=== PATIENT | female | born 1980 | race Hispanic/Latino ===

== ENCOUNTER 2018-10-05 14:41 | Observation (INO) | payer MEDICAID, SELFPAY ==
[~2018-10-05 14:41] MED LIST: Gadobenate Dimeglumine 529 MG/1 ML (20ML VIAL) ONE
[2018-10-05 15:21] LABS: #Eosinphils 0.2 thou/uL (0.0-0.7); #Lymphocytes 2.5 thou/uL (1.20-3.40); #Monocytes 0.4 thou/uL (0.11-0.59); #Neutrophils 6.8 thou/uL (1.40-6.50); %Basophils 0.5 % (0.0-1.0); %Lymphocytes 25.2 % (21.0-51.0); %Monocytes 4.2 % (0.0-10.0); %Neutrophils 68.1 % (42.0-75.0); Hemoglobin 13.9 g/dL (12.0-16.0); Mean Corpuscular HGB CONC 33.7 g/dL (32.0-36.0); Mean Corpuscular Hemoglobin 32.1 pg (27.0-31.0); Mean Corpuscular Volume 95.5 fL (78.0-98.0); Mean Platelet Volume 7.5 fL (7.4-10.4); Platelet Count 324 thou/uL (130-400); RBC Distribution Width 11.3 % (11.5-14.5); Red Blood Cell (RBC) Count 4.34 mill/uL (4.20-5.40); White Blood Cell (WBC) Count 9.9 thou/uL (4.8-10.8)
[2018-10-05 15:37] LABS: ALT (SGPT) 10 U/L (8-55); AST (SGOT) 8 U/L (5-34); Albumin 4.2 g/dL (3.5-5.0); Alkaline Phosphatase 101 U/L (40-150); Anion Gap 13 mmol/L (10-20); BUN (Urea Nitrogen) 10 mg/dL (7.0-18.7); Bilirubin, Total 0.4 mg/dL (0.2-1.2); Calc. Creatinine Clearance 0 mL/min (70-130); Carbon Dioxide 20 mmol/L (22-29); Chloride 109 mmol/L (98-107); Estimated GFR-MDRD Greater than 90; Globulin 2.7 g/dL (2.4-3.5); Glucose 103 mg/dL (70-105); Potassium 3.4 mmol/L (3.5-5.1); Protein, Total 6.9 g/dL (6.0-8.3); Sodium 139 mmol/L (136-145)
--- NOTE | 2018-10-05 15:40 | CT ---
CT BRAIN NONCONTRAST: DATE: 10/05/2018. TIME: 3:21 p.m. HISTORY: A 38-year-old female with dizziness and right facial hypesthesia and tongue hypesthesia (numbness). Dr. Gifford reported the finding and recommendation by telephone to ER ALEXANDER Boogie at 3:32 p.m. on . COMPARISON: None available. FINDINGS: There is a small, approximately 0.9 x 0.6 cm moderately low-density focus in the left side of the fortino s. The ventricles are normal in size and configuration. No mass effect, midline shift, or extraaxia l fluid collection. No evidence of acute intraaxial or extraaxial hemorrhage. Calvarium is intact. IMPRESSION: 1. Approximately 1 cm moderately low-density lesion in the left side of the mickie. 2. Recommend further evaluation with MRI of the brain, trigeminal nerve protocol, with and without c ontrast (unless there are contraindications). CODE HEAVEN JN R POS: HECTOR
[2018-10-05 17:30] LABS: Bilirubin Negative (Negative); Blood, Urine Moderate (Negative); Clarity CLEAR (Clear); Glucose, Urine (Dipstick) Negative (Negative); Leukocyte Small (Negative); Nitrite Negative (Negative); Protein, Urine (Dipstick) Negative (Neg-Trace); Specific Gravity, Urine 1.018 (1.002-1.036); Urobilinogen 0.2 mg/dL (0.2-1.0); pH, Urine 5.5 (5.0-9.0)
[2018-10-05 17:34] LABS: Bacteria/HPF None Seen HPF (None Seen); Hyaline Casts/LPF 0-3 HYALINE CAST LPF (0-3 Hyaline); Pathc Cast-AUWi Flag 0.27 (0-2.49); Squamous Epithelial 0-3 HPF (0-3)
[2018-10-05] MEDS ORDERED: Acetaminophen 325 MG TAB ONE (17:57)
--- NOTE | 2018-10-05 18:03 | MRI ---
MRI BRAIN WITH AND WITHOUT CONTRAST: DATE: 10/05/18 HISTORY: 38-year-old female with acute onset of dizziness, right facial hypesthesia and tongue hypesthesia (nu mbness). Abnormality found in mickie on noncontrast brain CT. Dr. Gifford discussed the findings and recommendation for neurology consultation with the Keagan MUNOZ at 5:24 p.m. on 10/05/18. COMPARISON: none TECHNIQUE: Multiple sequences obtained in axial, sagittal, and coronal planes; pre and post IV injection of gado linium-based contrast agent: 20 mL of Multihance. In addition to standard whole brain sequences, sher tional thin slices through the posterior fossa, cranial nerve protocol. FINDINGS: There is an approximately 1.7 x 0.6 cm focal patch of true restricted diffusion in the right middle c erebellar peduncle (brachium pontis) associated with faintly, mildly, increased signal intensity on T 2WI. No restricted diffusion or signal abnormality is visualized in the left side of the mickie. Therefore, the focal low density noted in that location on the recent CT, was artifact. There are numerous patchy focal small T2 hyperintense lesions in the left cerebral white matter: in t he hylton radiata and centrum semiovale. These range in size from several millimeters up to slightly greater than 1 cm. There are fewer such lesions in the contralateral right frontal upper subcortical and deep white jody er. There is no abnormal enhancement of any of the intra-axial brain lesions. There is no mass effect or midline shift. Ventricles are normal in size and configuration. No acute i ntra-axial hemorrhage. No abnormal enhancement or morphologic abnormality involving the cisternal seg ments of the bilateral trigeminal (5th cranial) nerves, Meckle's caves, cavernous sinuses, foramina r otunda, or foramina ovale. The right maxillary sinus has chronic deformity, small in volume. IMPRESSION: 1. Multiple focal cerebral nonenhancing white matter lesions, much more numerous in the left cer ebral hemisphere than the right. These could represent demyelinating plaque, such as of multiple scle rosis. Another possibility is vasculitis. 2. Lesion in the right middle cerebellar peduncle (right brachium pontis) with restricted diffus ion. This could be an acute infarction. An actively demyelinating lesion is another possibility, but there is no enhancement associated with this. 3. Recommend referral to neurology. 4. The questionable small CT lesion in the left side of the mickie was artifact. Code CR JN R POS: JIN
[2018-10-05] MEDS ORDERED: Ondansetron PF 4 MG/2 ML Vial IVP PRN (18:34)
[2018-10-05] MEDS ORDERED: Bisacodyl 5 MG TAB PO PRN (18:34)
[2018-10-05] MEDS ORDERED: hydrALAZINE 20 MG/ML VIAL SLOW IVP PRN (18:34)
[2018-10-05] MEDS ORDERED: Potassium Chloride 20 MEQ TAB PO SCH (19:00)
--- NOTE | 2018-10-05 19:22 | HP ---
PRIMARY CARE PROVIDER: None. CHIEF COMPLAINT: Facial numbness. HISTORY OF PRESENT ILLNESS: Ms. Levine is a pleasant 38-year-old lady, who was seen at [facility] on October 05, 2018. She reports having chronic back pain. She also reports having migraines. She also reports having on and off headaches, which she describes as tension headaches. Today morning, she went to [facility] with her daughter. While at [facility], she felt dizzy and lightheaded. She drove back home. After reaching home, she felt bad taste and funny feeling over her mouth. She reports feeling numb over the right side of her upper and lower lips. She came to the emergency room. She had investigations done including MRI. When she got out of MRI, she felt numbness over the right half of her face. 10 to 15 minutes later, she started having sensation back over the right side of her face. She reports that it is now almost back to normal. She also reports right-sided headache, which she describes as her usual tension headache. REVIEW OF SYSTEMS: All other systems reviewed and found to be negative. PAST MEDICAL HISTORY: Chronic back pain, migraines, gastroesophageal reflux disease, and tension headaches. PAST SURGICAL HISTORY: section. SOCIAL HISTORY: The patient smokes 1 pack of cigarettes a day. She denies any alcohol use or recreational drug use. FAMILY HISTORY: Significant for stroke in her maternal grandmother, lymphoma and throat cancer in her maternal grandfather, and lymphoma in her cousin. ALLERGIES: NO KNOWN DRUG ALLERGIES. CURRENT MEDICATIONS: None. PHYSICAL EXAMINATION: GENERAL: On examination, Ms. Levine is awake and alert, not in acute distress. VITAL SIGNS: Blood pressure is 110/75, pulse 60, respiratory rate 17, and oxygen saturation 97% on room air. She is afebrile. EYES: No scleral icterus, no conjunctival pallor. ENT: Moist mucosal membranes. No oropharyngeal erythema or exudates. NECK: Supple, nontender, trachea is midline. RESPIRATORY: Accessory muscles of breathing are not active. Chest wall movements are symmetric bilaterally. LUNGS: Clear to auscultation without wheeze, rhonchi, or crepitations. CARDIOVASCULAR: S1 and S2 are heard, regular. Peripheral pulses palpable. No carotid bruit. No pericardial rub. ABDOMEN: Soft, nontender, bowel sounds heard, no hepatomegaly, no splenomegaly. NEUROLOGIC: Mild decrease in sensation over the right side of her face compared to the left. Otherwise, cranial nerves 2 through 12 are intact. No focal motor or sensory deficits. Power is 5/5 in all four extremities. Deep tendon reflexes 2+, plantars downgoing bilaterally. MUSCULOSKELETAL: Power is 5/5 in all four extremities. SKIN: No rashes or subcutaneous nodules. LYMPHATIC: No cervical lymphadenopathy. PSYCHIATRIC: Normal mood, normal affect, the patient is oriented to person, place, and time. LABORATORY DATA: Ms. Levine's labs and investigations were reviewed. I reviewed her electrocardiogram, which shows normal sinus rhythm, no ST changes to suggest an acute coronary syndrome. I also reviewed noncontrast CT scan of the brain, which showed an approximately 1 cm low-density lesion in the left side of mickie. She also had MRI of the brain, which showed multiple focal cerebral nonenhancing white matter lesions, much more numerous in the left cerebral hemisphere than the right. This could represent demyelinating plaque of multiple sclerosis. The other possibility would be vasculitis. She also has a lesion in the right middle cerebellar peduncle with restricted diffusion. This is likely to be an acute infarction, according to radiologist. An actively demyelinating lesion is another possibility, but there is no enhancement associated with this. The questionable small CT lesion in the left side of the mickie was artifact. She has an unremarkable CBC, decreased potassium of 3.4, decreased carbon dioxide of 20, otherwise unremarkable comprehensive metabolic profile, normal C-reactive protein and normal ESR and urinalysis positive for small amount of leukocyte esterase. ASSESSMENT AND PLAN: Ms. Levine is a pleasant 38-year-old lady, who was seen at [facility] on October 05, 2018. Her problem list includes: 1. Facial numbness: Etiology is unclear. Differential diagnosis is wide, including multiple sclerosis and ischemic stroke. She will be admitted to the hospital for further management. 2. Multiple sclerosis: Suspected, based on MRI findings. She will be admitted to the hospital, will be on q.1 hour neuro checks. We will consult Neurology. 3. Ischemic stroke: One of the lesions appears to be ischemic stroke. We will start the patient on aspirin and statin. 4. Hypokalemia: We will replace potassium and recheck. 5. Tobacco abuse: We will start the patient on nicotine replacement therapy. The patient has been counseled regarding tobacco cessation. Many thanks for allowing me to participate in Ms. Levine's care. Please feel free to contact me with any questions or concerns. LEVEL OF RISK: High. LEVEL OF COMPLEXITY: High. Job ID: [id number]
[2018-10-05] MEDS ORDERED: Nicotine 21 MG PATCH TD SCH (20:00)
[2018-10-05 20:08] VITALS: BMI 36.6
[2018-10-05] MEDS ORDERED: Atorvastatin Calcium 40 MG TAB PO SCH (21:00)
[2018-10-06] MEDS: Acetaminophen 325 MG TAB PO PRN ×2 (04:10→11:27)
[2018-10-06 06:10] LABS: #Basophils 0.1 thou/uL (0.0-0.2); #Eosinphils 0.4 thou/uL (0.0-0.7); #Monocytes 0.6 thou/uL (0.11-0.59); #Neutrophils 5.5 thou/uL (1.40-6.50); %Basophils 0.6 % (0.0-1.0); %Eosinophils 3.9 % (0.0-10.0); %Lymphocytes 37.9 % (21.0-51.0); %Monocytes 5.6 % (0.0-10.0); Hemoglobin 13.2 g/dL (12.0-16.0); Mean Corpuscular HGB CONC 32.3 g/dL (32.0-36.0); Mean Corpuscular Hemoglobin 31.2 pg (27.0-31.0); Mean Corpuscular Volume 96.6 fL (78.0-98.0); Mean Platelet Volume 7.8 fL (7.4-10.4); Platelet Count 312 thou/uL (130-400); RBC Distribution Width 11.4 % (11.5-14.5); Red Blood Cell (RBC) Count 4.24 mill/uL (4.20-5.40); White Blood Cell (WBC) Count 10.6 thou/uL (4.8-10.8)
[2018-10-06 06:32] LABS: Anion Gap 11 mmol/L (10-20); BUN (Urea Nitrogen) 8 mg/dL (7.0-18.7); Calc. Creatinine Clearance 170 mL/min (70-130); Calcium 9.1 mg/dL (7.8-10.44); Carbon Dioxide 22 mmol/L (22-29); Cardiac Risk 5.2 (Less than 4.5); Chloride 110 mmol/L (98-107); Cholesterol 152 mg/dl (< 200 Desired); Estimated GFR-MDRD Greater than 90; Glucose 89 mg/dL (70-105); HDL Cholesterol 29 mg/dL (>60 Neg Risk); LDL Cholesterol, Calculated 99 mg/dL; Potassium 4.2 mmol/L (3.5-5.1); Sodium 139 mmol/L (136-145); Triglycerides 118 mg/dL (Less than 150)
[2018-10-06] MEDS ORDERED: Aspirin 325 mg Enteric Coated Tablet PO SCH (09:00)
[2018-10-06] MEDS ORDERED: Enoxaparin Sodium 40 MG/0.4 ML SYRINGE SC SCH (09:00)
--- NOTE | 2018-10-06 11:06 | CT ---
CT ANGIOGRAM HEAD WITH CONTRAST CT ANGIOGRAM NECK WITH CONTRAST: DATE: 10/06/2018. TIME: 9:55 a.m. HISTORY: A 38-year-old female with lesions on brain MRI. One of them has restricted diffusion suggesting poss ible acute infarction. TECHNIQUE: IV injection of 100 mL of Isovue 370. Arterial bolus chasing technique scan performed from aortic arch to vertex of head. Coronal and sagi ttal 3D MIP reconstructions. FINDINGS: There is no atherosclerotic calcified plaque. No irregularity of major arteries. Normal caliber of aortic arch, brachiocephalic, left subclavian, bilateral common carotid, bilateral cervical vertebral , bilateral cervical internal carotid, arteries. No evidence of occlusion or significant stenosis of bilateral carotid siphons, M1 segments of bilater al middle cerebral arteries, A1 and A2 segments of bilateral anterior cerebral arteries, bilateral in tracranial vertebrals, basilar, posterior cerebrals, and superior cerebellar, arteries. No dural eleonora ous sinus thrombosis. IMPRESSION: Normal. POS: HECTOR
--- NOTE | 2018-10-06 12:14 | CON ---
DATE OF CONSULTATION: CHIEF COMPLAINT: Numbness of the right side. HISTORY OF PRESENT ILLNESS: The patient is a 38-year-old lady, who reports she came to the hospital because she became dizzy and lightheaded and her mouth felt weird and then she had subsequent right-sided numbness to right face and arm and yesterday by 9:00 p.m., by the time she was in the room, she had complete resolution of her symptoms. This morning, she has a recurrence of numbness in the right cheek area, mostly in the lower half of the face. Two years ago, she reports her right leg stopped working. She was walking to school with her son and she had an appointment with a neurologist, but by on the date of her appointment, she had lost her insurance and was unable to seek care. She has had headaches with migraine since age 25. She had to be hospitalized for few months at that time and now she has occasional headaches with menstrual cycle. She also has tension headaches. She has retro-orbital headache along with headache in the back of the head. She has allergies as well. She needs glasses, but no loss of vision in the past or currently. She complained of joint pains throughout and pain in the left foot due to plantar fasciitis. PAST MEDICAL HISTORY: Gastroesophageal reflux disease, arthritis, chronic back pain, joint pains, and plantar fasciitis. PAST SURGICAL HISTORY: at age 16. SOCIAL HISTORY: She smokes one pack a day since age 13. No alcohol use and she also does not use any drugs. She lives with her children. FAMILY HISTORY: Her grandmother had cervical cancer and father's medical history is not known, but she knows he from cirrhosis of liver, he was alcoholic. The patient's maternal grandfather had throat cancer, paternal grandfather had lymphoma. Her maternal first cousin from lymphoma recently. REVIEW OF SYSTEMS: PULMONARY: Negative for shortness of breath. GI: Negative for any diarrhea, vomiting, or nausea. NEUROLOGIC: Positive for numbness and dizziness. ENT: Normal. OPHTHALMOLOGIC: Positive for blurred vision. CARDIAC: Negative for palpitations or chest pain. GENITOURINARY: Negative for any bladder problems. MUSCULOSKELETAL: Positive for joint pains. LABORATORY DATA: Her current workup, lab workup; white count 10.6, hemoglobin 13.2, hematocrit 41, platelets are 312. Chemistry; sodium 139, potassium 4.2, chloride 110, bicarb 22, BUN 8, creatinine 0.67, and glucose is 89. UA is positive for moderate blood, small amount of leukocyte esterase. DIAGNOSTIC DATA: MRI of the brain was completed yesterday and MRI is read as 1.7 x 0.6 cm focal patch of restricted diffusion in the right middle cerebral peduncle associated with faintly mildly increased signal intensity on T2. No restricted diffusion or signal abnormality in the left side of mickie, therefore, focal low density noted in that location on recent CT was an artifact. There are numerous patchy focal small T2 hyperintense lesions in the left cerebral white matter in the hylton radiata and centrum semiovale and these could represent demyelinating plaque such as of multiple sclerosis, another possibility is vasculitis. The lesion in right middle cerebral peduncle could be an acute infarction and actively demyelinating lesion is another possibility, but no enhancement was noted and her CT of the head was also completed yesterday and it shows 1 cm moderate low-density lesion left side of mickie and MRI was recommended. The patient is currently pending CT angiogram and echocardiogram in further workup. PHYSICAL EXAMINATION: VITAL SIGNS: Blood pressure 110/56, temperature 97.6, pulse 67, and respiratory rate 16. GENERAL APPEARANCE: Slightly obese lady, appears comfortable. NEUROLOGIC: Higher intellectual functions. Normal orientation to time, place, person and appropriate conversation. Cranial nerve examination; pupils are 3 mm, reactive bilaterally to light. Normal extraocular movements. No facial asymmetry. Decreased sensation of face in the V3 distribution on the right side. No facial asymmetry noted. Tongue midline. Normal elevation of palate. Normal hearing to finger rub bilaterally. Motor, bulk normal, tone normal, strength 5/5 in both upper extremities. In the right leg, she had 4/5 strength proximally. Rest of the lower extremity exam was normal with normal strength at 5/5. Muscle groups tested on deltoid, biceps, triceps, wrist extension, flexion, finger extension and flexion, iliopsoas hamstrings, quadriceps, ankle dorsiflexion, plantar flexion, and deep tendon reflexes were 1+ in the upper extremity and left knee jerk, and ankle jerks and right knee jerk was 2+. Cerebellar; normal [id number], [id number]. Sensory examination, decreased sensation in the right V3 distribution on the face only. Normal sensation in extremities. IMPRESSION: The patient is a 38-year-old lady with prior history of pre-existing right leg weakness for the last 2 years. The patient is also complaining of joint pains throughout. Her ESR was within normal limits. The patient came in with right-sided numbness and NIH Stroke Scale was estimated at 1 and due to MRI findings and delayed presentation, no intervention was planned. The patient could not have immediate CT angiogram due to the gadolinium contrast given for the MRI; therefore, CT angiogram is arranged this morning. At this time, her examination is essentially normal except for mild proximal right lower extremity weakness and sensory loss in the right V3 distribution. TREATMENT RECOMMENDATIONS: I discussed the case with Dr. Ortega since the patient started saying she wanted to be discharged home. If she stays in the hospital, we can continue with plans for lumbar puncture and send CSF for analysis for the following studies, cell count, protein and glucose, CSF VDRL and also send the patient's CSF for Q-albumin, serum and CSF electrophoresis, IgG synthesis rate and fungal cultures as well. I will follow up the patient tomorrow again if she is in the hospital. She will probably also need imaging of her spine to complete the workup for MS and I will review the CT angio reports. Job ID: [id number]
--- NOTE | 2018-10-06 14:16 | PDOC.PN ---
- Subjective Encounter Start Date: 10/06/18 Encounter Start Time: 11:20 Pt seen for followup re; facial numbness. feels better. - Objective Vital Signs & Weight: Vital Signs (12 hours) Temp Pulse Pulse Pulse Resp BP BP 10/06/18 11:36 76 74 119/58 L 10/06/18 11:14 98.2 F 70 16 10/06/18 07:43 97.6 F 67 16 10/06/18 05:50 60 99/58 L 10/06/18 04:05 98.2 F 68 16 BP BP Pulse Ox 10/06/18 11:36 131/63 10/06/18 11:14 110/52 L 97 10/06/18 07:43 110/56 L 98 10/06/18 05:50 10/06/18 04:05 99/54 L 96 Weight Weight 208 lb 6.4 oz I&O: 10/05/18 10/06/18 10/07/18 05:59 06:59 06:59 Intake Total Output Total Balance Result Diagrams: 10/06/18 05:28 10/06/18 05:28 Additional Labs: Accuchecks 10/05/18 14:54 POC Glucose 97 Phys Exam - Physical Examination Constitutional: NAD HEENT: moist MMs Neck: supple Respiratory: clear to auscultation bilateral Cardiovascular: RRR Gastrointestinal: soft Neurological: non-focal, moves all 4 limbs Psychiatric: normal affect Dx/Plan (1) Facial numbness Code(s): R20.0 - ANESTHESIA OF SKIN Status: Acute Comment: Improving (2) Multiple sclerosis Code(s): G35 - MULTIPLE SCLEROSIS Status: Suspected Comment: Pt deciding whether to have lumbar puncture, will await decision - Plan PT/OT, out of bed/ambulate * . Review of Systems - Review of Systems Cardiovascular: negative: chest pain, palpitations, orthopnea, paroxysmal nocturnal dyspnea, edema, light headedness Gastrointestinal: negative: Nausea, Vomiting, Abdominal Pain, Diarrhea, Constipation, Melena, Hematochezia Neurological: Numbness - Medications/Allergies Allergies/Adverse Reactions: Allergies Allergy/AdvReac Type Severity Reaction Status Date / Time No Known Drug Allergies Allergy Verified 10/05/18 20:24 Medications: Current Medications Acetaminophen (Tylenol) 650 mg PO Q4H PRN PRN Reason: Headache/Fever/Mild Pain (1-3) Last Admin: 10/06/18 11:27 Dose: 650 mg Aspirin (Ecotrin) 325 mg PO DAILY [facility] Last Admin: 10/06/18 11:11 Dose: 325 mg Atorvastatin Calcium (Lipitor) 40 mg PO HS [facility] Last Admin: 10/05/18 20:59 Dose: 40 mg Bisacodyl (Dulcolax) 10 mg PO DAILYPRN PRN PRN Reason: Constipation Enoxaparin Sodium (Lovenox) 40 mg SC 0900 [facility] Last Admin: 10/06/18 11:11 Dose: 40 mg Hydralazine HCl (Apresoline) 10 mg SLOW IVP Q4H PRN PRN Reason: BP > 220/110 Nicotine (Nicoderm Patch) 21 mg TD Q24HR [facility] Last Admin: 10/05/18 21:00 Dose: 21 mg Ondansetron HCl (Zofran) 4 mg IVP Q6H PRN PRN Reason: Nausea/Vomiting Sodium Chloride (Flush - Normal Saline) 10 ml IVF PRN PRN PRN Reason: Saline Flush
[2018-10-06 15:30] VITALS: BP 120/69; TEMP 98.1
--- NOTE | 2018-10-07 01:20 | DIS ---
DATE OF ADMISSION: 10/05/2018 DATE OF DISCHARGE: 10/06/2018 PRIMARY CARE PROVIDER: None. DISCHARGE DIAGNOSES: 1. Facial numbness. 2. Suspected multiple sclerosis. CONDITION OF PATIENT ON THE DAY OF DISCHARGE: Stable. I assessed Ms. Levine on the day of discharge. She denies any chest pain or shortness of breath. Vital signs are stable. S1 and S2 are heard, regular. Lungs are clear to auscultation bilaterally. DISCHARGE MEDICATIONS: None. CONSULTATIONS DURING THIS HOSPITALIZATION: Neurology, Dr. Larsen. HOSPITAL COURSE: Ms. Levine is a pleasant 38-year-old lady, who was admitted to [facility] on October 05, 2018, for facial numbness. She had MRI of the brain with suspicion raised for multiple sclerosis. She was seen by tele neurology. She was recommended lumbar puncture and CSF studies. However, she did not wish to stay in the hospital for these studies since her son has a court date in the morning and she had to be there. She said she will follow up with neurologist as an outpatient for this test. She had CT angiography of neck and [place], which were normal. At the time of this dictation, 2D echo report is pending. She is advised to follow up with her primary care provider for a report of the 2D echocardiogram. DISCHARGE DESTINATION: Home. On the day of discharge, she has an unremarkable CBC, unremarkable comprehensive metabolic profile, and fasting lipid profile showing triglycerides 118, cholesterol 152, LDL cholesterol 99, and HDL cholesterol 29. Job ID: [id number]
--- NOTE | 2018-10-12 17:16 | EKG ---
Test Reason : Blood Pressure : / mmHG Vent. Rate : 079 BPM Atrial Rate : 079 BPM P-R Int : 138 ms QRS Dur : 090 ms QT Int : 410 ms P-R-T Axes : 058 041 014 degrees QTc Int : 470 ms Normal sinus rhythm Normal ECG Confirmed by SHAQUILLE MARCUS, SARAI ([id number]), editor managing newspaper NESSA HINOJOSA ([id number]) on 10/12/2018 5:16:39 PM Referred By: Confirmed By:SARAI CORBIN MD
== END 2018-10-06 18:03 | disposition home or self-care (01) ==
LOC: ERS 14:41 → 2SW 19:58
PROVIDERS: ADMIT Internal Medicine; ATTEND Internal Medicine
DX: R20.0 Anesthesia of skin (principal); R42 Dizziness and giddiness; G89.29 Other chronic pain; M54.9 Dorsalgia, unspecified; G43.909 Migraine, unspecified, not intractable, without status migrainosus; K21.9 Gastro-esophageal reflux disease without esophagitis; F17.210 Nicotine dependence, cigarettes, uncomplicated; E87.6 Hypokalemia; M19.90 Unspecified osteoarthritis, unspecified site
CPT/HCPCS: 36415; 36416; 70450; 70496; 70498; 70553; 80048; 80053; 80061; 81003; 81015; 85025; 85652; 86140; 90471; 90686; 90732; 93005; 93306; 96372; A9577; G0008; G0009; G0378; J1650

== ENCOUNTER 2019-01-02 09:13 | Outpatient (CLI) | payer OTHER ==
--- NOTE | 2019-01-02 13:11 | MRI ---
MRI cervical spine. HISTORY: Multiple sclerosis. Multiplanar multisequence pre and postcontrast enhanced MRI images cervical spine. No definite evidence of spinal cord masses or lesions seen. No evidence of cord enhancement seen. Mild disc desiccation with broad-based disc bulges seen at C3-4, C4-5, C5-6 and C6-7. IMPRESSION: No evidence of acute cervical spine cord lesions.
--- NOTE | 2019-01-02 15:43 | MRI ---
MRI THORACIC SPINE WITH AND WITHOUT CONTRAST: DATE: 01/02/2019. HISTORY: A 38-year-old female with multiple sclerosis. FINDINGS: The vertebral body heights are maintained. Alignment is normal. Bone marrow signal is normal. No h igh-grade degenerative disk disease or high-grade degenerative facet disease identified at any level. No high-grade central spinal stenosis or high-grade neural foraminal stenosis at any level. No fra nk extrinsic cord impingement identified at any level. Thoracic spinal cord is normal in size and si gnal, with no evidence of intramedullary T2 hyperintense signal abnormality or abnormal enhancement. There is no abnormal enhancement in the extramedullary-intradural, extradural, intraosseous, or xavi vertebral, spaces. IMPRESSION: Normal. POS: HECTOR
== END 2019-01-02 09:14 | disposition home or self-care (01) ==
LOC: SCSMRI 09:13
PROVIDERS: ATTEND Psychiatry & Neurology Neurology
DX: G35 Multiple sclerosis (principal)
CPT/HCPCS: 72156; 72157

== ENCOUNTER 2020-12-20 19:32 | Emergency (ER) | payer MEDICAID, OTHER ==
[2020-12-20] MEDS ORDERED: HYDROcodone/Acetaminophen 10/325 mg Tablet ONE (21:52)
== END 2020-12-20 22:10 | disposition home or self-care (01) ==
LOC: ERS 19:32
DX: S30.0XXA Contusion of lower back and pelvis, initial encounter (principal); M25.551 Pain in right hip; F17.210 Nicotine dependence, cigarettes, uncomplicated; W01.0XXA Fall on same level from slipping, tripping and stumbling without subsequent striking against object, initial encounter
CPT/HCPCS: 72192

== ENCOUNTER 2020-12-27 19:39 | Emergency (ER) | payer OTHER | END 2020-12-27 21:00 | disposition home or self-care (01) | LOC: ERS 19:39 | DX: R60.0 Localized edema (principal); F17.210 Nicotine dependence, cigarettes, uncomplicated | CPT/HCPCS: 99283 ==